=== PATIENT | female | born 1965 | race Asian ===

== ENCOUNTER 2017-08-24 09:05 | Emergency (ER) | payer BC ==
[2017-08-24 09:31] VITALS: BP 98/61
--- NOTE | 2017-08-24 10:01 | UC ---
Knee Pain HPI - HPI Summary HPI Summary: Pt presents with left knee pain since yesterday. She tells me that she was playing ice hockey and twisted her left knee - heard a pop and had immediate pain. Was able to get up and ambulate, but did not keep playing. No trauma or impact injury. No hx of prior injury. She has been icing and elevating the knee. She woke up this morning with some swelling. Denies numbness, tingling, or radiation of pain. - History of Current Complaint Chief Complaint: UCLowerExtremity Stated Complaint: KNEE INJURY Time Seen by Provider: 08/24/17 09:55 Hx Obtained From: Patient Hx Last Menstrual Period: 05/2017 Onset/Duration: Sudden Onset Severity Initially: Moderate Severity Currently: Moderate Pain Intensity: 5 Pain Scale Used: 0-10 Numeric Character: Sharp, Dull, Aching Alleviating Factor(s): Rest, Position Associated Signs And Symptoms: Positive: Swelling - Allergies/Home Medications Allergies/Adverse Reactions: Allergies Allergy/AdvReac Type Severity Reaction Status Date / Time Acetaminophen [From Tylenol] Allergy Diarrhea Verified 08/24/17 09:32 Morphine Allergy Shortness Verified 08/24/17 09:32 of Breath Penicillins Allergy Rash Verified 08/24/17 09:32 Home Medications: Home Medications Carvedilol [Coreg] 0.5 tab PO DAILY 08/24/17 [History Confirmed 08/24/17] Ibuprofen [Ibuprofen 200 MG] 1 tab PO Q4HR PRN 08/24/17 [History Confirmed 08/24] PMH/Surg Hx/FS Hx/Imm Hx Previously Healthy: Yes Cardiovascular History: Hypertension - Surgical History Surgical History: Yes Surgery Procedure, Year, and Place: 3x c-sections - Family History Known Family History: Positive: Hypertension - Social History Occupation: Employed Full-time Lives: With Family Alcohol Use: None Substance Use Type: None Smoking Status (MU): Never Smoked Tobacco - Immunization History Most Recent Influenza Vaccination: Fall 2016 Most Recent Tetanus Shot: unk Most Recent Pneumonia Vaccination: none Review of Systems Constitutional: Negative Respiratory: Negative Cardiovascular: Negative Musculoskeletal: Decreased ROM - Left knee, Edema - Left knee, Other: - Left knee pain Neurological: Negative All Other Systems Reviewed And Are Negative: Yes Physical Exam Triage Information Reviewed: Yes Appearance: Well-Appearing, No Pain Distress, Well-Nourished Vital Signs: Initial Vital Signs Temp 98.4 F 08/24/17 09:28 Pulse 68 08/24/17 09:28 Resp 16 08/24/17 09:28 BP 98/61 08/24/17 09:28 Pulse Ox 98 08/24/17 09:28 Vital Signs Reviewed: Yes Respiratory: Positive: Lungs clear, Normal breath sounds, No respiratory distress Cardiovascular: Positive: RRR, No Murmur, Pulses Normal Musculoskeletal: Positive: Strength Limited @ - Left knee due to pain, ROM Limited @ - Left knee due to pain. Flexion to 30deg before pain. Full extension. , Edema @ - Medial left knee mild, Other: - TTP over medial left knee. Pain on medial aspect with valgus stress, but no increased laxity. Positive Brant for pain and click. No patella apprehension. Negative Tisha, A/P drawer, and varus stress. Neurological: Positive: Alert, Other: - Sensations intact left LE Psychological: Positive: Age Appropriate Behavior Skin: Negative: rashes, significant lesion(s) Knee Pain Course/Dx - Course Course Of Treatment: Knee XR: IMPRESSION: SMALL JOINT EFFUSION, NO FRACTURE IS SEEN. Suspect knee strain/sprain vs meniscus injury. I advised her to try conservative treatment for 7-10days, consisting of RICE, ibuprofen, and crutches. If her symptoms persist - call Orthopedics for an appointment. - Differential Dx/Diagnosis Provider Diagnoses: Left knee sprain Discharge - Discharge Plan Condition: Stable Disposition: HOME Patient Education Materials: Knee Sprain (DC), Meniscus Tear (ED) Referrals: Ruma Aaron MD [Primary Care Provider] - Magdi Rodriguez MD [Medical Doctor] - If Needed Additional Instructions: If you develop a fever, shortness of breath, chest pain, new or worsening symptoms - please call your PCP or go to the ED. 1) Ice and Ibuprofen 400-600mg every 6-8 hours as needed for pain. Use the crutches as needed for and activities as tolerated. 2) Please call Orthopedics at the number below to schedule a follow up appointment if your symptoms persist greater than 1 week.
--- NOTE | 2017-08-24 10:47 | RAD ---
INDICATION: Left knee injury. TECHNIQUE: 4 views of the left knee were obtained. FINDINGS: The bones are normal alignment. There is a small joint effusion. No fracture is seen. Joint spaces appear maintained. IMPRESSION: SMALL JOINT EFFUSION, NO FRACTURE IS SEEN.
== END 2017-08-24 11:05 | disposition home or self-care (01) ==
LOC: UCEAST 09:05
DX: S83.92XA Sprain of unspecified site of left knee, initial encounter (principal); X50.1XXA Overexertion from prolonged static or awkward postures, initial encounter; Y93.22 Activity, ice hockey; Y92.330 Ice skating rink (indoor) (outdoor) as the place of occurrence of the external cause; I10 Essential (primary) hypertension; Z88.6 Allergy status to analgesic agent; Z88.5 Allergy status to narcotic agent; Z88.0 Allergy status to penicillin
CPT/HCPCS: 99212; G0463

== ENCOUNTER 2019-06-28 17:13 | Emergency (ER) | payer BC ==
--- NOTE | 2019-06-28 19:36 | ED ---
HPI Febrile Illness - HPI Summary HPI Summary: 53 year old female presents with fever for the past couple weeks. States she did have a tick bite a couple months ago. She was treated with a 21 day course of doxycycline. she just finished the course last night. She states that a week ago she notices some swelling to the right side of neck. She denies sore throat. Admits some difficult swallowing. No cough. No chest pain or shortness breath. No urinary symptoms. No vomiting. No nausea. No headache. No sinus congestion. States fever mostly happens at night. She gets night sweats and weight loss. Otherwise has no medical conditions. fever has been as high as 101 mostly 99. - History of Current Complaint Chief Complaint: EDFluSymptoms Time Seen by Provider: 06/28/19 19:18 Hx Last Menstrual Period: 05/2017 Pain Intensity: 6 - Additional Pertinent History Primary Care Physician: RONIT - Allergy/Home Medications Allergies/Adverse Reactions: Allergies Allergy/AdvReac Type Severity Reaction Status Date / Time acetaminophen Allergy Diarrhea Verified 06/28/19 17:29 morphine Allergy Hallucinati Verified 06/28/19 17:29 ons Penicillins Allergy Rash Verified 06/28/19 17:29 Home Medications: Home Medications NK [No Home Medications Reported] 06/28/19 [History Confirmed 06/28/19] PMH/Surg Hx/FS Hx/Imm Hx Endocrine/Hematology History: Denies: Hx Diabetes Cardiovascular History: Reports: Hx Angina, Other Cardiovascular Problems/ Disorders - pericarditis 2 years ago Denies: Hx Hypertension, Hx Pacemaker/ICD Respiratory History: Denies: Hx Asthma GI History: Reports: Other GI Disorders - GI pain past 3 years History: Denies: Hx Renal Disease Sensory History: Reports: Hx Contacts or Glasses - not with patient Denies: Hx Hearing Aid Opthamlomology History: Reports: Hx Contacts or Glasses - not with patient Neurological History: Reports: Other Neuro Impairments/Disorders - Vertigo issues in the past, no issues now Psychiatric History: Denies: Hx Panic Disorder - Cancer History Hx Chemotherapy: No Hx Radiation Therapy: No - Surgical History Surgery Procedure, Year, and Place: 3x c-sections. UTERINE BIOPSY Infectious Disease History: No Infectious Disease History: Denies: Traveled Outside the [place] in Last 30 Days - Family History Known Family History: Positive: Hypertension - Social History Alcohol Use: None Substance Use Type: Reports: None Smoking Status (MU): Never Smoked Tobacco Review of Systems Positive: Fever Positive: Sore Throat Negative: Chest Pain Negative: Shortness Of Breath Negative: Abdominal Pain All Other Systems Reviewed And Are Negative: Yes Physical Exam Triage Information Reviewed: Yes Vital Signs On Initial Exam: Initial Vitals Temp Pulse Resp BP Pulse Ox 98.0 F 100 16 129/80 98 06/28/19 17:23 06/28/19 17:23 06/28/19 17:23 06/28/19 17:23 06/28/19 17:23 Vital Signs Reviewed: Yes Appearance: Positive: Well-Appearing Skin: Positive: Warm, Dry Head/Face: Positive: Normal Head/Face Inspection Eyes: Positive: Normal, EOMI, TOR, Conjunctiva Clear ENT: Positive: Pharynx normal, TMs normal Neck: Positive: Tenderness @ - right cervical, Enlarged Nodes @ - bilateral cervical. Negative: Nuchal Rigidity Respiratory/Lung Sounds: Positive: Clear to Auscultation, Breath Sounds Present Cardiovascular: Positive: Normal, RRR Abdomen Description: Positive: Nontender, Soft Bowel Sounds: Positive: Present Musculoskeletal: Positive: Normal Neurological: Positive: Normal Psychiatric: Positive: Normal Procedures - Sedation Patient Received Moderate/Deep Sedation with Procedure: No Diagnostics - Vital Signs Vital Signs Temp Pulse Resp BP Pulse Ox 06/28/19 17:23 98.0 F 100 16 129/80 98 - Laboratory Result Diagrams: 06/28/19 19:35 06/28/19 19:35 Lab Statement: Any lab studies that have been ordered have been reviewed, and results considered in the medical decision making process. - Radiology chest Radiology Interpretation Completed By: ED Physician Summary of Radiographic Findings: no pneumonia - Ultrasound No standard instances Ultrasound Interpretation Completed By: Radiologist Summary of Ultrasound Findings: IMPRESSION: 1. No sonographic findings to correlate with patient's symptomatology. 2. Thyroid goiter. Course/Dx - Course Course Of Treatment: 53 year old female presents with fever for the past couple weeks. States she did have a tick bite a couple months ago. She was treated with a 21 day course of doxycycline. she just finished the course last night. She states that a week ago she notices some swelling to the right side of neck. She denies sore throat. Admits some difficult swallowing. No cough. No chest pain or shortness breath. No urinary symptoms. No vomiting. No nausea. No headache. No sinus congestion. States fever mostly happens at night. She gets night sweats and weight loss. Otherwise has no medical conditions. fever has been as high as 101 mostly 99. On exam has lymphadenopathy noted on the right. Pharynx normal. wbc normal. Chest x-ray shows no pneumonia. crp slighly elevated. afebrile here. lungs CTA. u/s neck normal. will have follow up with primary. patient understand and agrees with plan. - Febrile Illness Differential Diagnoses: Pneumonia, Sepsis, Viremia - Diagnoses Provider Diagnoses: Fever Discharge ED - Sign-Out/Discharge Documenting (check all that apply): Patient Departure - Discharge Plan Condition: Good Disposition: HOME Patient Education Materials: Fever in Adults (ED) Referrals: Abbie Flores MD [Primary Care Provider] - Additional Instructions: take ibuprofen every 6 hours as needed for fever Follow up with primary within 5 days Return to ED if develop any new or worsening symptoms - Billing Disposition and Condition Condition: GOOD Disposition: Home
[2019-06-28 19:46] LABS: ABS Eosinophils 0.1 10^3/ul (0-0.6); ABS Lymphocytes 1.3 10^3/ul (1.0-4.8); ABS Monocytes 0.7 10^3/ul (0-0.8); ABS Neutrophils 3.2 10^3/ul (1.5-7.7); Eosinophil % 2.7 %; Hematocrit 33 % (35-47); Hemoglobin 11.2 g/dL (12.0-16.0); Lymphocyte % 25.2 %; Mean Corpuscular HGB Conc 34 g/dL (31-36); Mean Corpuscular Hemoglobin 30 pg (27-31); Mean Corpuscular Volume 89 fL (80-97); Mean Platelet Volume 6.9 fL (7.4-10.4); Nucleated Red Blood Cells % 0.1; Platelet Count 309 10^3/uL (150-450); Red Cell Distribution Width 12 % (10-15); White Blood Count 5.3 10^3/uL (3.5-10.8)
[2019-06-28 20:04] LABS: Albumin 3.3 g/dL (3.2-5.2); Albumin/Globulin Ratio 0.8 (1-3); C Reactive Protein 54.35 mg/L (<8.01); Calcium 8.9 mg/dL (8.6-10.3); EGFR African American 98.2 (>60); EGFR Non-African American 81.1 (>60); Potassium 3.8 mmol/L (3.5-5.0); Total Bilirubin 0.2 mg/dL (0.2-1.0); Total Protein 7.3 g/dL (6.4-8.9)
[2019-06-28 20:23] LABS: Urine Appearance Clear; Urine Bilirubin Negative (Negative); Urine Blood 1+ (Negative); Urine Color Straw; Urine Glucose Negative (Negative); Urine Ketones Negative (Negative); Urine Nitrite Negative (Negative); Urine Protein Negative (Negative); Urine Urobilinogen Negative (Negative)
[2019-06-28 20:27] LABS: Urine Bacteria Absent (Absent); Urine Red Blood Cell Trace(0-2/hpf) (Absent); Urine White Blood Cell Absent (Absent)
[2019-06-28 20:33] LABS: Rapid Strep Molecular Negative (Negative)
[2019-06-28 20:35] LABS: Influenza A Molecular NEGATIVE (Negative); Influenza B Molecular NEGATIVE (Negative)
[2019-06-28 21:59] VITALS: BP 118/67
[2019-07-01 22:01] LABS: Anaplasma phagocytophilum Negative (Negative); B. miyamotoi PCR, B Negative (Negative); Babesia divergens/MO-1 Negative (Negative); Babesia ducani Negative (Negative); Ehrlichia chaffeensis Negative (Negative); Ehrlichia ewingii/canis Negative (Negative); Ehrlichia muris eauclairensis Negative (Negative)
== END 2019-06-28 21:47 | disposition home or self-care (01) ==
LOC: ED 17:13
DX: R50.9 Fever, unspecified (principal); Z88.6 Allergy status to analgesic agent; Z88.5 Allergy status to narcotic agent; Z88.0 Allergy status to penicillin
CPT/HCPCS: 36415; 70360; 71046; 76536; 80053; 81003; 81015; 85025; 86140; 86308; 87040; 87651; 87798; 99282